=== PATIENT | male | born 1965 | race Caucasian/White ===

== ENCOUNTER 2019-04-15 20:48 | Emergency (ER) | payer OTHER ==
[~2019-04-15] VITALS: Ht 167.6 cm; Wt 77.1 kg
--- NOTE | 2019-04-15 21:05 | NUR ---
DR. BEAUCHAMP AT BEDSIDE FOR MSE.
[2019-04-15] MEDS ORDERED: CLONIDINE HCL 0.1 MG TABLET PO ONE (21:15)
[2019-04-15] MEDS ORDERED: CLONIDINE HCL 0.1 MG TABLET ONE (21:17)
[2019-04-15 21:22] LABS: *BLOOD, URINE NEGATIVE (NEGATIVE); *CLARITY,URINE CLEAR (CLEAR); *COLOR,URINE YELLOW (YELLOW); *KETONES,URINE NEGATIVE (NEGATIVE); *UROBILINOGEN,URINE 0.2 E.U./dl (NORMAL); LEUKOCYTE ESTERASE ,URINE NEGATIVE (NEGATIVE); NITRITE, URINE NEGATIVE (NEGATIVE); PH,URINE 5.5 (5.0-8.0); UGLUCOSE NEGATIVE (NEGATIVE)
[2019-04-15 21:28] LABS: *BILIRUBIN,URIN 1+ (NEGATIVE)
--- NOTE | 2019-04-15 21:47 | NUR ---
Patient discharged to home in stable conditon. Written and verbal after care instructions given. Patient verbalizes understanding of instructions. PATIENT LEFT WITH STABLE GAIT.
[2019-04-15 21:56] VITALS: BP 153/88
== END 2019-04-15 21:47 | disposition home or self-care (01) ==
LOC: ER 20:48
DX: I10 Essential (primary) hypertension (principal); F17.290 Nicotine dependence, other tobacco product, uncomplicated; Z71.6 Tobacco abuse counseling
CPT/HCPCS: 93005; A4663

== ENCOUNTER 2019-04-28 21:39 | Emergency (ER) | payer OTHER ==
[~2019-04-28] VITALS: Ht 167.6 cm; Wt 79.4 kg
--- NOTE | 2019-04-28 21:54 | NUR ---
MD AT BEDSIDE FOR HX AND PHYSICAL C/O POSSIBLE FUNGAL INFECTION OF TOE, R FOOT X2YRS DENIES RECENT TRAUMA NOR SURGERY TO THE SITE PT NAD, ABLE TO SPEAK CLEAR AND COMPLETE SENTENCES DENIES SI/HI CONCERNS AT THIS TIME PT IS HOMELESS SIGNED WAIVER FORM SIDERAILSX2 UP BED AT LOWEST POSITION MONITORED ACCORDINGLY
[2019-04-28] MEDS ORDERED: IBUPROFEN 600 MG TABLET ONE (22:12)
[2019-04-28] MEDS ORDERED: IBUPROFEN 600 MG TABLET PO ONE (22:15)
--- NOTE | 2019-04-28 22:23 | NUR ---
Patient discharged to home in stable conditon. Written and verbal after care instructions given. Patient verbalizes understanding of instructions. AMBULATORY W/ STABLE GAIT ALL BELONGINGS W/ PT HOMELESS WAIVER FORM SIGNED
[2019-04-28 22:26] VITALS: BP 142/89
== END 2019-04-28 22:25 | disposition home or self-care (01) ==
LOC: ER 21:39
DX: B35.1 Tinea unguium (principal); I10 Essential (primary) hypertension; F17.200 Nicotine dependence, unspecified, uncomplicated; Z59.0 Homelessness
CPT/HCPCS: A4663

== ENCOUNTER 2019-05-18 22:30 | Emergency (ER) | payer OTHER ==
[~2019-05-18] VITALS: Ht 167.6 cm; Wt 78.9 kg
[2019-05-18] MEDS ORDERED: NIFE60TA9 PO (22:39)
[2019-05-18 23:16] LABS: BASOPHILS # (AUTO) 0.1 K/uL (0.0-8.0); BASOPHILS % (AUTO) 1.3 % (0.0-2.0); EOSINOPHILS # (AUTO) 0.3 K/uL (0.0-0.7); EOSINOPHILS % (AUTO) 3.6 % (0.0-7.0); HEMATOCRIT 43.6 % (36.7-47.1); HEMOGLOBIN 14.5 g/dL (12.5-16.3); LYMPHOCYTES # (AUTO) 2.9 K/uL (20.0-40.0); LYMPHOCYTES % (AUTO) 31.7 % (20.5-51.5); MEAN CORPUSCULAR HEMOGLOBIN 30.1 uug (23.8-33.4); MEAN CORPUSCULAR HGB CONC 33 g/dL (32.5-36.3); MEAN CORPUSCULAR VOLUME 90.6 fL (73.0-96.2); MONOCYTES # (AUTO) 1.4 K/uL (2.0-10.0); MONOCYTES % (AUTO) 15.5 % (0.0-11.0); NEUTROPHILS # (AUTO) 4.3 K/uL (1.8-8.9); NEUTROPHILS % (AUTO) 47.9 % (38.5-71.5); PLATELET COUNT (AUTO) 275 K/uL (152-348); RED BLOOD CELL COUNT(AUTO) 4.81 MIL/uL (4.06-5.63); WHITE BLOOD COUNT (AUTO) 9.1 K/uL (3.6-10.2)
[2019-05-18 23:32] LABS: CREATININE 1.1 mg/dL (0.6-1.3); POTASSIUM 3.8 mmol/L (3.5-5.1)
[2019-05-18 23:40] LABS: BILIRUBIN,DIRECT 0.1 mg/dL (0.0-0.2); BILIRUBIN,TOTAL 0.4 mg/dL (0.2-1.0)
[2019-05-18] MEDS ORDERED: IV NORMAL SALINE 250 ML IV ONE (23:55)
[2019-05-18] MEDS ORDERED: IOHEXOL 300MG/ML 100 ML INFUS..BTL ONE (23:55)
[2019-05-18] MEDS ORDERED: SWABABLE VALVE TRANSFER SET EA MC ONE (23:55)
--- NOTE | 2019-05-19 00:05 | NUR ---
PT IS AMBULATORY W/ STABLE GAIT ABLE TO SPEAK CLEAR AND COMPMLETE SENTENCES C/O FACIAL PAIN (POINTING TO L LOWER JAW) X1DAY DENIES TRAUMA, +TEETH EXTRACTION RECENTLY PT DENIES OTHER PPMDHX PT REQUESTING FOR FOOD BLANKET AND ANTIBIOTICS NOT IN APPARENT DISTRESS MD AT BEDSIDE FOR HX AND PHYSICAL
--- NOTE | 2019-05-19 00:23 | NUR ---
BACK FROM CT VIA WHEELCHAIR ACC BY TECH
--- NOTE | 2019-05-19 00:26 | NUR ---
PT ABLE TO AMBULATE ASKING FOR FOOD AND JUICE
[2019-05-19 01:16] LABS: BAND % (MANUAL) 2 % (0-10); EOSINOPHILS % (MANUAL) 5 % (0-8); LYMPHOCYTES % (MANUAL) 31 % (20-40); MONOCYTES % (MANUAL) 14 % (2-10); NEUTROPHILS % (MANUAL) 48 % (42-75)
--- NOTE | 2019-05-19 02:00 | NUR ---
DC IV SALINE LOCK DRESSED
--- NOTE | 2019-05-19 02:01 | NUR ---
Patient discharged to home in stable conditon. Written and verbal after care instructions given. Patient verbalizes understanding of instructions. AMBULATORY W/ STABLE GAIT ALL BELONGINGS W/ PT
[2019-05-19 02:39] VITALS: BP 154/80
== END 2019-05-19 02:01 | disposition home or self-care (01) ==
LOC: ER 22:35
DX: K02.9 Dental caries, unspecified (principal); I10 Essential (primary) hypertension; F17.200 Nicotine dependence, unspecified, uncomplicated; Z79.899 Other long term (current) drug therapy
CPT/HCPCS: 36415; 70487; 80048; 80076; 85007; 85025; 99284; Q9967; 70030-TC; A4663; J7050

== ENCOUNTER 2019-06-06 17:57 | Emergency (ER) | payer OTHER ==
[~2019-06-06] VITALS: Ht 167.6 cm; Wt 81.6 kg
[~2019-06-06 17:57] MED LIST: NIFE60TA9 PO
--- NOTE | 2019-06-06 18:45 | NUR ---
MARTIN ACE AT BEDSIDE FOR MSE.
[2019-06-06] MEDS ORDERED: LORAZEPAM 0.5 MG TABLET PO ONE (19:00)
--- NOTE | 2019-06-06 19:00 | NUR ---
SHIFT REPORT GIVEN TO BILLY LUTHER
--- NOTE | 2019-06-06 19:10 | NUR ---
Patient agitated and refused blood work. ERMD made aware
--- NOTE | 2019-06-06 19:12 | NUR ---
Patient refuses care. ERMD at bedside to explain. ERMD requests security on standby. Security notified
--- NOTE | 2019-06-06 19:16 | NUR ---
Security at bedside on standby
--- NOTE | 2019-06-06 19:20 | NUR ---
Patient states he wants to give blood and urine. lab made aware and provided urine cup
--- NOTE | 2019-06-06 19:27 | NUR ---
urine sent to lab
[2019-06-06 19:34] LABS: *BILIRUBIN,URIN NEGATIVE (NEGATIVE); *CLARITY,URINE CLEAR (CLEAR); *COLOR,URINE YELLOW (YELLOW); *KETONES,URINE NEGATIVE (NEGATIVE); *UROBILINOGEN,URINE 0.2 E.U./dl (NORMAL); LEUKOCYTE ESTERASE ,URINE NEGATIVE (NEGATIVE); NITRITE, URINE NEGATIVE (NEGATIVE); PH,URINE 5.5 (5.0-8.0); UGLUCOSE NEGATIVE (NEGATIVE)
[2019-06-06] MEDS ORDERED: LORAZEPAM 1 MG TABLET ONE (19:36)
[2019-06-06 19:41] LABS: *BLOOD, URINE TRACE (NEGATIVE); RBC,URINE 0-3 /HPF (0-3); WBC,URINE 0-3 /HPF (0-3)
[2019-06-06 19:42] LABS: MUCUS,URINE FEW /LPF (0-FEW)
[2019-06-06 19:46] LABS: *AMPHETAMINE, URINE POSITIVE (NEGATIVE); *BARBITURATE, URINE NEGATIVE (NEGATIVE); *CANNABINOID, URINE POSITIVE (NEGATIVE); *COCCAINE, URINE NEGATIVE (NEGATIVE); *OPIATE, URINE NEGATIVE (NEGATIVE); *PHENCYCLIDINE SCREEN,URINE NEGATIVE (NEGATIVE)
[2019-06-06 19:47] LABS: BASOPHILS # (AUTO) 0.1 K/uL (0.0-8.0); EOSINOPHILS # (AUTO) 0.2 K/uL (0.0-0.7); HEMATOCRIT 41.2 % (36.7-47.1); LYMPHOCYTES # (AUTO) 2.6 K/uL (20.0-40.0); LYMPHOCYTES % (AUTO) 29.8 % (20.5-51.5); MEAN CORPUSCULAR HEMOGLOBIN 30.5 uug (23.8-33.4); MEAN CORPUSCULAR HGB CONC 34 g/dL (32.5-36.3); MEAN CORPUSCULAR VOLUME 89.9 fL (73.0-96.2); MONOCYTES # (AUTO) 1.6 K/uL (2.0-10.0); NEUTROPHILS # (AUTO) 4.3 K/uL (1.8-8.9); NEUTROPHILS % (AUTO) 49.2 % (38.5-71.5); PLATELET COUNT (AUTO) 293 K/uL (152-348); RED BLOOD CELL COUNT(AUTO) 4.59 MIL/uL (4.06-5.63); WHITE BLOOD COUNT (AUTO) 8.7 K/uL (3.6-10.2)
[2019-06-06 19:56] LABS: CARBON DIOXIDE 27 mmol/L (21-32); CHLORIDE 103 mmol/L (98-107); CREATININE 1.1 mg/dL (0.6-1.3); GLUCOSE 81 mg/dL (74-106); POTASSIUM 3.7 mmol/L (3.5-5.1); UREA NITROGEN, BLOOD 16 mg/dL (7-18)
[2019-06-06 20:02] LABS: ACETAMINOPHEN < 2.0 ug/mL (10-30); ALANINE AMINOTRANSFERASE 78 U/L (16-63); ALKALINE PHOSPHATASE 116 U/L (50-136); ASPARTATE AMINOTRANSFERASE 94 U/L (15-37); BILIRUBIN,DIRECT 0.2 mg/dL (0.0-0.2); BILIRUBIN,TOTAL 0.8 mg/dL (0.2-1.0); ETHANOL 4 MG/DL (0-0); TOTAL PROTEIN, SERUM 8.1 g/dL (6.4-8.2)
[2019-06-06 20:07] LABS: BAND % (MANUAL) 2 % (0-10); LYMPHOCYTES % (MANUAL) 32 % (20-40); NEUTROPHILS % (MANUAL) 45 % (42-75)
[2019-06-06 20:08] LABS: EOSINOPHILS % (MANUAL) 2 % (0-8); MONOCYTES % (MANUAL) 19 % (2-10)
--- NOTE | 2019-06-06 21:00 | NUR ---
Patient in bed sleeping but easily arousable. Breathing even and unlabored. NAD noted
--- NOTE | 2019-06-06 23:00 | NUR ---
Patient in bed awake and oriented. Provided patient with dinner tray and beverages. patient tolerated well. Breathing even and unlabored. NAD noted.
--- NOTE | 2019-06-06 23:20 | NUR ---
Avery Zamarripa at bedside to evaluate patient
[2019-06-07] MEDS ORDERED: LORAZEPAM 1 MG TABLET ONE (00:42)
[2019-06-07] MEDS ORDERED: LORAZEPAM 0.5 MG TABLET PO ONE (00:45)
--- NOTE | 2019-06-07 01:00 | NUR ---
Called [facility] [phone] to follow up on patient. Spoke with Marleny and stated that they have not received the fax from Avery Zamarripa. same fax number received [phone]. re-faxed result attn to Marleny. Marleny stated will call back once fax is received. Patient made aware. No further concerns at this time
--- NOTE | 2019-06-07 01:06 | NUR ---
Patient awake and ambulated to the restroom. Breathing even and unlabored. NAD noted.
--- NOTE | 2019-06-07 02:53 | NUR ---
spoke with [facility] intake and sent over medical clearance note from Dr. Mota. Staff confirmed receipt. per [facility] staff, will be calling back for room number and report
--- NOTE | 2019-06-07 02:54 | NUR ---
Patient in bed sleeping but easily arousable. Breathing even and unlabored. NAD noted
--- NOTE | 2019-06-07 03:09 | NUR ---
Spoke with Bret from [facility] unit 2 for report. Patient will be under Dr. Justice
--- NOTE | 2019-06-07 03:16 | NUR ---
Spoke with Hossein with call a car transportation. given ETA of [phone] via [employer]. Trip #[id number]. patient made aware. no further concerns at this time
--- NOTE | 2019-06-07 04:47 | NUR ---
Patient picked up by [facility] in stable condition via gurney. all belongings with patient. Patient ambulated with steady gait
== END 2019-06-07 04:47 | disposition short-term general hospital (02) ==
LOC: ER 18:00
DX: F32.9 Major depressive disorder, single episode, unspecified (principal); R45.851 Suicidal ideations; F10.10 Alcohol abuse, uncomplicated; I10 Essential (primary) hypertension; F17.200 Nicotine dependence, unspecified, uncomplicated; Z79.899 Other long term (current) drug therapy; Y90.0 Blood alcohol level of less than 20 mg/100 ml
CPT/HCPCS: 36415; 80048; 80076; 80307; 81000; 81001; 85007; 85025; 93005; 99285; G0480 ×2; G0481; 70030-TC; A4663

== ENCOUNTER 2019-06-16 23:16 | Emergency (ER) | payer OTHER ==
[~2019-06-16] VITALS: Ht 167.6 cm; Wt 81.6 kg
[2019-06-17 00:34] LABS: *BLOOD, URINE NEGATIVE (NEGATIVE); *CLARITY,URINE CLEAR (CLEAR); *COLOR,URINE YELLOW (YELLOW); *KETONES,URINE 3+ (NEGATIVE); LEUKOCYTE ESTERASE ,URINE NEGATIVE (NEGATIVE); NITRITE, URINE NEGATIVE (NEGATIVE); UGLUCOSE NEGATIVE (NEGATIVE)
[2019-06-17 00:40] LABS: BASOPHILS # (AUTO) 0.1 K/uL (0.0-8.0); BASOPHILS % (AUTO) 1.3 % (0.0-2.0); EOSINOPHILS # (AUTO) 0.2 K/uL (0.0-0.7); EOSINOPHILS % (AUTO) 2.6 % (0.0-7.0); HEMATOCRIT 40.7 % (36.7-47.1); HEMOGLOBIN 13.6 g/dL (12.5-16.3); LYMPHOCYTES # (AUTO) 2.7 K/uL (20.0-40.0); LYMPHOCYTES % (AUTO) 32.2 % (20.5-51.5); MEAN CORPUSCULAR HEMOGLOBIN 30.6 uug (23.8-33.4); MEAN CORPUSCULAR HGB CONC 34 g/dL (32.5-36.3); MEAN CORPUSCULAR VOLUME 91.3 fL (73.0-96.2); MONOCYTES # (AUTO) 1.3 K/uL (2.0-10.0); MONOCYTES % (AUTO) 15.9 % (0.0-11.0); PLATELET COUNT (AUTO) 287 K/uL (152-348); RED BLOOD CELL COUNT(AUTO) 4.46 MIL/uL (4.06-5.63); WHITE BLOOD COUNT (AUTO) 8.3 K/uL (3.6-10.2)
[2019-06-17 00:47] LABS: ALANINE AMINOTRANSFERASE 82 U/L (16-63); ALKALINE PHOSPHATASE 121 U/L (50-136); ASPARTATE AMINOTRANSFERASE 69 U/L (15-37); BILIRUBIN,DIRECT 0.3 mg/dL (0.0-0.2); BILIRUBIN,TOTAL 0.9 mg/dL (0.2-1.0); CARBON DIOXIDE 27 mmol/L (21-32); CHLORIDE 102 mmol/L (98-107); CREATININE 1.1 mg/dL (0.6-1.3); GLUCOSE 82 mg/dL (74-106); POTASSIUM 3.7 mmol/L (3.5-5.1); UREA NITROGEN, BLOOD 14 mg/dL (7-18)
[2019-06-17 00:52] LABS: *AMPHETAMINE, URINE POSITIVE (NEGATIVE); *BARBITURATE, URINE NEGATIVE (NEGATIVE); *CANNABINOID, URINE POSITIVE (NEGATIVE); *COCCAINE, URINE NEGATIVE (NEGATIVE); *OPIATE, URINE NEGATIVE (NEGATIVE); *PHENCYCLIDINE SCREEN,URINE POSITIVE (NEGATIVE)
[2019-06-17 00:56] LABS: ACETAMINOPHEN < 2.0 ug/mL (10-30)
[2019-06-17 01:04] LABS: ETHANOL < 3 MG/DL (0-0)
[2019-06-17 01:07] LABS: *BILIRUBIN,URIN 1+ (NEGATIVE)
[2019-06-17 01:30] LABS: BACTERIA,URINE NONE SEEN /HPF (NONE SEEN); RBC,URINE 0-3 /HPF (0-3); SQUAMOUS EPITHELIAL CELL,UR FEW /HPF (NONE SEEN)
[2019-06-17 01:31] LABS: MUCUS,URINE MANY /LPF (0-FEW)
[2019-06-17 01:37] LABS: EOSINOPHILS % (MANUAL) 4 % (0-8); LYMPHOCYTES % (MANUAL) 22 % (20-40); MONOCYTES % (MANUAL) 19 % (2-10); NEUTROPHILS % (MANUAL) 55 % (42-75)
--- NOTE | 2019-06-17 01:43 | NUR ---
Called Taryn Ravi RN PET for psych eval, left message.
--- NOTE | 2019-06-17 02:09 | NUR ---
Called Taryn Ravi RN PET for psych eval, left a message.
--- NOTE | 2019-06-17 02:31 | NUR ---
Called Taryn Ravi RN PET for pt psych eval, left a message.
--- NOTE | 2019-06-17 03:00 | NUR ---
Patient given written and verbal discharge instructions. Patient verbalizes understanding of instructions. Patient is ambulatory with steady gait. Refuses offer of skilled nursing placement. Patient given list of available shelters in surrounding area. Pt refused to sign homeless waiver and discharge instructions, no acute signs of distress, VSS, escorted out of ER by security.
[2019-06-17 03:03] VITALS: BP 168/99
== END 2019-06-17 03:03 | disposition home or self-care (01) ==
LOC: ER 23:20
DX: R44.0 Auditory hallucinations (principal); M79.10 Myalgia, unspecified site; F19.90 Other psychoactive substance use, unspecified, uncomplicated; I10 Essential (primary) hypertension; F17.210 Nicotine dependence, cigarettes, uncomplicated; Z79.899 Other long term (current) drug therapy
CPT/HCPCS: 36415; 80048; 80076; 80307; 81000; 81001; 84443; 85007; 85025; 87086; 99284; 99406; G0480 ×2; G0481; 70030-TC; A4663

== ENCOUNTER 2019-07-31 21:34 | Emergency (ER) | payer OTHER ==
[~2019-07-31] VITALS: Ht 167.6 cm; Wt 75.3 kg
[2019-07-31] MEDS ORDERED: CEFTRIAXONE 1 G VIAL IM ONE (22:00)
[2019-07-31] MEDS ORDERED: CEFTRIAXONE 1 G VIAL ONE (22:00)
[2019-07-31] MEDS ORDERED: LIDOCAINE HCL 1% 20 ML VIAL ONE (22:00)
--- NOTE | 2019-07-31 22:15 | NUR ---
Patient given written and verbal discharge instructions. Patient verbalizes understanding of instructions. Patient is ambulatory with steady gait. Refuses offer of intermediate placement. Patient given list of available shelters in surrounding area. Patient ambulated out of ER with stable gait.
[2019-07-31 22:17] VITALS: BP 137/82
== END 2019-07-31 22:18 | disposition home or self-care (01) ==
LOC: ER 21:34
DX: L03.114 Cellulitis of left upper limb (principal); F19.10 Other psychoactive substance abuse, uncomplicated; I10 Essential (primary) hypertension; F17.200 Nicotine dependence, unspecified, uncomplicated; Z60.2 Problems related to living alone
CPT/HCPCS: 96372; 99283; J0696; J3490; A4663

== ENCOUNTER 2019-08-12 20:14 | Emergency (ER) | payer SELFPAY ==
--- NOTE | 2019-08-12 20:39 | NUR ---
Patient left without being traiged or seen by ERMD.
== END 2019-08-12 20:40 | disposition left against medical advice (07) ==
LOC: ER 20:14
DX: Z53.21 Procedure and treatment not carried out due to patient leaving prior to being seen by health care provider (principal)

== ENCOUNTER 2019-08-20 16:39 | Emergency (ER) | payer OTHER ==
[~2019-08-20] VITALS: Ht 167.6 cm; Wt 74.4 kg
--- NOTE | 2019-08-20 17:18 | NUR ---
PT CALM AND COOPERATIVE. STATES SI CONCERN WITHOUT PLAN Patient is AOx4, speaking in complete sentences, speech is clear. Patient is able to follow /comprehend directions. Gait is stable. No cardiovascular distress noted. Rate and rhythm are regular. No CP. No respiratory distress noted. Respirations even & unlabored with symmetrical chest rise. No adventitious sounds noted. Chief complaint: REQUESTING PSYCH EVAL Patient denies Fever/Chills. No recent travel. No pertinent medical history/NKDA. - ETOH / -recreational drug use/ +SMOKER MONITORED ACCORDINGLY FREQUENT VISUAL CHECKS DONE PT ROOM PLACED NEAR NURSES' STATION SI PREC APPLIED
[2019-08-20 17:27] LABS: CARBON DIOXIDE 29 mmol/L (21-32); CHLORIDE 102 mmol/L (98-107); CREATININE 1.3 mg/dL (0.6-1.3); GLUCOSE 108 mg/dL (74-106); POTASSIUM 4.3 mmol/L (3.5-5.1); UREA NITROGEN, BLOOD 28 mg/dL (7-18)
[2019-08-20 17:30] LABS: BASOPHILS # (AUTO) 0.1 K/uL (0.0-8.0); BASOPHILS % (AUTO) 0.9 % (0.0-2.0); EOSINOPHILS # (AUTO) 0.3 K/uL (0.0-0.7); EOSINOPHILS % (AUTO) 4.5 % (0.0-7.0); HEMATOCRIT 46.5 % (36.7-47.1); HEMOGLOBIN 15.7 g/dL (12.5-16.3); LYMPHOCYTES # (AUTO) 2.3 K/uL (20.0-40.0); LYMPHOCYTES % (AUTO) 35.4 % (20.5-51.5); MEAN CORPUSCULAR HEMOGLOBIN 31.1 uug (23.8-33.4); MEAN CORPUSCULAR HGB CONC 34 g/dL (32.5-36.3); MEAN CORPUSCULAR VOLUME 92.3 fL (73.0-96.2); MONOCYTES % (AUTO) 15.2 % (0.0-11.0); NEUTROPHILS # (AUTO) 2.8 K/uL (1.8-8.9); PLATELET COUNT (AUTO) 419 K/uL (152-348); RED BLOOD CELL COUNT(AUTO) 5.04 MIL/uL (4.06-5.63); WHITE BLOOD COUNT (AUTO) 6.4 K/uL (3.6-10.2)
[2019-08-20 17:32] LABS: ALANINE AMINOTRANSFERASE 56 U/L (16-63); ALKALINE PHOSPHATASE 140 U/L (50-136); ASPARTATE AMINOTRANSFERASE 30 U/L (15-37); BILIRUBIN,DIRECT 0.1 mg/dL (0.0-0.2); BILIRUBIN,TOTAL 0.2 mg/dL (0.2-1.0); TOTAL PROTEIN, SERUM 8.4 g/dL (6.4-8.2)
[2019-08-20 17:33] LABS: ACETAMINOPHEN < 2.0 ug/mL (10-30)
[2019-08-20 17:34] LABS: ETHANOL < 3 MG/DL (0-0)
[2019-08-20 18:09] LABS: *BILIRUBIN,URIN NEGATIVE (NEGATIVE); *BLOOD, URINE NEGATIVE (NEGATIVE); *CLARITY,URINE CLEAR (CLEAR); *COLOR,URINE YELLOW (YELLOW); *KETONES,URINE NEGATIVE (NEGATIVE); *UROBILINOGEN,URINE 0.2 E.U./dl (NORMAL); LEUKOCYTE ESTERASE ,URINE NEGATIVE (NEGATIVE); NITRITE, URINE NEGATIVE (NEGATIVE); UGLUCOSE NEGATIVE (NEGATIVE)
--- NOTE | 2019-08-20 18:15 | NUR ---
PT IS MEDICALY CLEARED PER CONSULT ON THE PHONE W/ MR MAI AVERY(CRISIS MASTER OCEAN YACHT): FOR VOLUNTARY ADMISSIONS, CALL TAJ MCHUGH DX: SI WITHOUT PLAN, FOR PSYCHE EVALUATION
--- NOTE | 2019-08-20 18:18 | NUR ---
INTAKE: JOSE STATES THERE IS AVAILABLILITY AT [facility] FAX: [phone] PHONE: [phone]
[2019-08-20 18:19] LABS: BAND % (MANUAL) 8 % (0-10); EOSINOPHILS % (MANUAL) 4 % (0-8); LYMPHOCYTES % (MANUAL) 25 % (20-40); MONOCYTES % (MANUAL) 20 % (2-10); NEUTROPHILS % (MANUAL) 43 % (42-75)
[2019-08-20 18:22] LABS: *AMPHETAMINE, URINE POSITIVE (NEGATIVE); *BARBITURATE, URINE NEGATIVE (NEGATIVE); *CANNABINOID, URINE NEGATIVE (NEGATIVE); *COCCAINE, URINE NEGATIVE (NEGATIVE); *OPIATE, URINE NEGATIVE (NEGATIVE); *PHENCYCLIDINE SCREEN,URINE NEGATIVE (NEGATIVE)
--- NOTE | 2019-08-20 20:12 | NUR ---
[facility] No updates at this time, will be called back for updates
--- NOTE | 2019-08-20 20:43 | NUR ---
Spoke with Chayo from [facility] and stated that more clinicals are needed. Re-faxed clinicals over to [phone]
--- NOTE | 2019-08-20 21:42 | NUR ---
Spoke with Abdi from [facility] and confirmed receipt of clinicals
--- NOTE | 2019-08-21 01:31 | NUR ---
Spoke with Abdi from [facility] and confirmed receipt of all clinicals. Patient in bed sleeping but easily arousable. Breathing even and unlabored. No SOB noted. NAD noted. frequent visual checks done. bed low. s/r up x2
--- NOTE | 2019-08-21 02:49 | NUR ---
Yoselyn from [facility] intake called to give transfer info. Patient is being accepted at [facility] unit #2 call for report is . Accepting MD is DR Justice.
--- NOTE | 2019-08-21 04:59 | NUR ---
Spoke with Bret from [facility] and get report
--- NOTE | 2019-08-21 05:57 | NUR ---
Spoke with Ema from [employer] with update on rock picker time
--- NOTE | 2019-08-21 06:22 | NUR ---
Spoke with Al from [employer] with pick pulling machine tender time of 0900 from [facility] ambulance trip # [id number]
--- NOTE | 2019-08-21 07:00 | NUR ---
received hand off and SBAR fr outgoing RN (Esthela) Pt is waiting product picker of Ambulance Pt is for transport to Rm/Unit [facility] (Yoselyn: short staff, please transfer after 0900) [phone] Dx: Psych Eval Receiving Physician: Dr Justice Pt NAD asleep on supine RA monitored accordingly
--- NOTE | 2019-08-21 08:02 | NUR ---
ambulance arrived pickup driver Addendum: 08/21/19 at 0808 by MARY ANN ambulance call back for pickup
--- NOTE | 2019-08-21 09:03 | NUR ---
AMBULANCE AT BEDSIDE FOR CAREER RESOURCE TECHNICIAN PT NAD RA AMBULATORY W/ STABLE GAIT
== END 2019-08-21 09:07 ==
LOC: ER 16:44
DX: R45.851 Suicidal ideations (principal); L03.113 Cellulitis of right upper limb; F10.10 Alcohol abuse, uncomplicated; F15.10 Other stimulant abuse, uncomplicated; F17.210 Nicotine dependence, cigarettes, uncomplicated; Z79.899 Other long term (current) drug therapy
CPT/HCPCS: 36415; 80048; 80076; 80307; 81001; 85007; 85025; 99285; G0480 ×2; G0481; 70030-TC; A4663

== ENCOUNTER 2019-08-26 22:47 | Emergency (ER) | payer OTHER ==
[~2019-08-26] VITALS: Ht 167.6 cm; Wt 73.0 kg
--- NOTE | 2019-08-26 23:17 | NUR ---
Patient walked into ER for medication refill. Dr. Foy at bedside for MSE.
--- NOTE | 2019-08-26 23:27 | NUR ---
Patient discharged to home in stable conditon. Written and verbal after care instructions given. Patient verbalizes understanding of instructions. Patient left with stable gait.
[2019-08-26 23:28] VITALS: BP 148/62
== END 2019-08-26 23:29 | disposition home or self-care (01) ==
LOC: ER 22:47
DX: Z76.0 Encounter for issue of repeat prescription (principal); F17.210 Nicotine dependence, cigarettes, uncomplicated; F10.10 Alcohol abuse, uncomplicated; Y90.9 Presence of alcohol in blood, level not specified; Z60.2 Problems related to living alone
CPT/HCPCS: A4663

== ENCOUNTER 2019-08-29 23:51 | Emergency (ER) | payer OTHER ==
[~2019-08-29] VITALS: Ht 167.6 cm; Wt 74.8 kg
--- NOTE | 2019-08-29 23:59 | NUR ---
PATIENT WAS TOLD TO STAY IN HIS ROOM STARTED SCREAMING AT STAFF MAKING THREATS. PATIENT WENT BACK TO THE ROOM. WAS STILL SCREAMING AND MAKING THREATS WAS TOLD TO CALM DOWN. REQUEST ASSISTANCE FROM OTHER STAFF TO DE ESCALATE NOTED PATIENT STILL NOT FOLLOWING REQUEST.
--- NOTE | 2019-08-30 00:04 | NUR ---
Patient eloped from facility. ER physician notified.
== END 2019-08-30 00:09 | disposition left against medical advice (07) ==
LOC: ER 23:55
DX: M79.644 Pain in right finger(s) (principal); F17.200 Nicotine dependence, unspecified, uncomplicated; Z60.2 Problems related to living alone
CPT/HCPCS: A4663

== ENCOUNTER 2019-09-20 17:41 | Emergency (ER) | payer OTHER ==
[~2019-09-20] VITALS: Ht 167.6 cm; Wt 77.1 kg
[2019-09-20] MEDS ORDERED: FLUORESCEIN SODIUM 1 MG STRIP ONE (17:53)
--- NOTE | 2019-09-20 18:02 | NUR ---
Patient discharged to home in stable condition. Written and verbal after care instructions given. Patient verbalizes understanding of instructions. Stressed follow up WITH COTTON BROKER or return to ER for worsening s/s.
== END 2019-09-20 18:05 | disposition home or self-care (01) ==
LOC: ER 17:41
DX: H53.8 Other visual disturbances (principal); F17.210 Nicotine dependence, cigarettes, uncomplicated; F15.10 Other stimulant abuse, uncomplicated; F10.20 Alcohol dependence, uncomplicated; Y90.9 Presence of alcohol in blood, level not specified; Z86.19 Personal history of other infectious and parasitic diseases
CPT/HCPCS: A4663

== ENCOUNTER 2019-10-01 16:02 | Emergency (ER) | payer OTHER ==
[~2019-10-01] VITALS: Ht 162.6 cm; Wt 64.0 kg
--- NOTE | 2019-10-01 16:25 | NUR ---
Patient ambulated with stable gait. Speech is clear, speaks in complete sentences. No acute neuro deficits noted. Patient came for thoughts of SI. Patient states that he wants to overdose on 60 units of heroin. Denies any HI, or visual hallucinations but reports hearing voices. Respiratory even and unlabored, no cough no sob. No cardiovascular distress noted, denies any cp, palpiations. Denies n/v/d. Patienet in bed at lowest position, sr upx2, call light within reach. Fall/Safety/Suicide precautions initiated per protocol.
--- NOTE | 2019-10-01 16:40 | NUR ---
Crisis Note Patient is well known to this program writer and is requesting admission to [facility]. He is calm and cooperative and alert and oriented and is appropriate for voluntary admission. This clinician called Sameer, loader operator supervisor at [facility] ([phone]) and he agreed to hold a bed for this patient pending medical clearance. Antonino was advised and is happy with this plan. Curry, patient's RN was also notified of this plan. Labwork and medical clearance need to be faxed to [phone] (fax). ED MD, Dr Hay, also notified of plan and is in agreement with this. Medical clearance pending. Ramón in admitting agreed to fax clinicals once they are ready. No need for further crisis evaluation.
[2019-10-01 16:46] LABS: *BILIRUBIN,URIN 1+ (NEGATIVE); *BLOOD, URINE 3+ (NEGATIVE); *CLARITY,URINE HAZY (CLEAR); *COLOR,URINE DARK YELLOW (YELLOW); *KETONES,URINE NEGATIVE (NEGATIVE); LEUKOCYTE ESTERASE ,URINE NEGATIVE (NEGATIVE); NITRITE, URINE NEGATIVE (NEGATIVE); UGLUCOSE NEGATIVE (NEGATIVE)
[2019-10-01 16:47] LABS: BASOPHILS # (AUTO) 0.1 K/uL (0.0-8.0); EOSINOPHILS # (AUTO) 0.1 K/uL (0.0-0.7); HEMATOCRIT 43.1 % (36.7-47.1); HEMOGLOBIN 14.4 g/dL (12.5-16.3); LYMPHOCYTES % (AUTO) 40.2 % (20.5-51.5); MEAN CORPUSCULAR HEMOGLOBIN 30.5 uug (23.8-33.4); MEAN CORPUSCULAR HGB CONC 33 g/dL (32.5-36.3); MEAN CORPUSCULAR VOLUME 91.3 fL (73.0-96.2); MONOCYTES # (AUTO) 0.8 K/uL (2.0-10.0); MONOCYTES % (AUTO) 15.7 % (0.0-11.0); NEUTROPHILS # (AUTO) 2.1 K/uL (1.8-8.9); NEUTROPHILS % (AUTO) 41.1 % (38.5-71.5); PLATELET COUNT (AUTO) 340 K/uL (152-348); RED BLOOD CELL COUNT(AUTO) 4.72 MIL/uL (4.06-5.63); WHITE BLOOD COUNT (AUTO) 5.1 K/uL (3.6-10.2)
[2019-10-01 16:53] LABS: BACTERIA,URINE FEW /HPF (NONE SEEN); RBC,URINE 20-50 /HPF (0-3); SQUAMOUS EPITHELIAL CELL,UR FEW /HPF (NONE SEEN); WBC,URINE 0-3 /HPF (0-3)
[2019-10-01 16:56] LABS: CARBON DIOXIDE 27 mmol/L (21-32); CHLORIDE 102 mmol/L (98-107); CREATININE 0.9 mg/dL (0.6-1.3); GLUCOSE 85 mg/dL (74-106); POTASSIUM 3.9 mmol/L (3.5-5.1); UREA NITROGEN, BLOOD 14 mg/dL (7-18)
[2019-10-01 16:58] LABS: *AMPHETAMINE, URINE POSITIVE (NEGATIVE); *BARBITURATE, URINE NEGATIVE (NEGATIVE); *CANNABINOID, URINE POSITIVE (NEGATIVE); *COCCAINE, URINE NEGATIVE (NEGATIVE); *OPIATE, URINE NEGATIVE (NEGATIVE); *PHENCYCLIDINE SCREEN,URINE NEGATIVE (NEGATIVE)
[2019-10-01] MEDS ORDERED: CEphaleXIN 500 MG CAPSULE PO ONE (17:00)
[2019-10-01 17:02] LABS: ALANINE AMINOTRANSFERASE 81 U/L (16-63); ALKALINE PHOSPHATASE 129 U/L (50-136); ASPARTATE AMINOTRANSFERASE 50 U/L (15-37); BILIRUBIN,DIRECT 0.2 mg/dL (0.0-0.2); BILIRUBIN,TOTAL 0.5 mg/dL (0.2-1.0); TOTAL PROTEIN, SERUM 7.7 g/dL (6.4-8.2)
[2019-10-01 17:04] LABS: ACETAMINOPHEN < 2.0 ug/mL (10-30)
[2019-10-01 17:10] LABS: THYROID STIMULATING HORMONE 3.292 mIU/mL (0.358-3.740)
[2019-10-01 17:20] LABS: ETHANOL < 3 MG/DL (0-0)
[2019-10-01 17:31] LABS: BAND % (MANUAL) 4 % (0-10); EOSINOPHILS % (MANUAL) 5 % (0-8); LYMPHOCYTES % (MANUAL) 45 % (20-40); MONOCYTES % (MANUAL) 8 % (2-10); NEUTROPHILS % (MANUAL) 35 % (42-75)
--- NOTE | 2019-10-01 17:41 | NUR ---
Provided patient with meal tray.
--- NOTE | 2019-10-01 17:53 | NUR ---
Labs, and progress report faxed to [facility]. Awaiting call back for transfer information.
--- NOTE | 2019-10-01 18:29 | NUR ---
Patient in bed asleep, resting with eyes closed. NAD, VSS
--- NOTE | 2019-10-01 19:17 | NUR ---
Report given to ASHKAN Quiñonez
--- NOTE | 2019-10-01 19:26 | NUR ---
Received report from outgoing RN. Assumed care for patient, received sleeping, with no signs and symptoms of acute medical distress. Will continue to monitor.
--- NOTE | 2019-10-01 20:52 | NUR ---
Pt is awake now. Meal provided to patient for dinner: sandwich, fruit and drink. Patient remains in bed, AO x 4. Able to ambulate to the bathroom. No signs of distress. Still verbalizing suicidal ideation, but does not have an active plan at this time. Calm and cooperative. No episodes of agitation or agression to staff. Does not pose danger to self at this time. Closely monitored by RN.
--- NOTE | 2019-10-02 01:26 | NUR ---
Patient remains sleeping in bed. No signs of acute distress. Refused VS taken at this time. Side rails up x 2. Needs attended. Still waiting for placement.
--- NOTE | 2019-10-02 01:29 | NUR ---
Sukhjinder, [facility] Intake, informed RN that patient has been accepted to [facility] [address] Hernandez. Unit 2 Contact # [phone]. Transportation [employer] contacted. S/W Erica. WILLIAM [phone] pickling tank operator.
--- NOTE | 2019-10-02 02:13 | NUR ---
Report given to [facility] staff Unit 2, and patient BP 163/85 accepted by network control supervisor Mekhi.
--- NOTE | 2019-10-02 02:30 | NUR ---
Patient Tranferred to outside Facility for Psych admission. Accepted to [facility], per Sukhjinder (Ship Boat Or Barge Mate) under Dr. Justice/Dr. Hernandez. Patient picked up by [employer] transportation, gave report to Kee BALDWIN. Pt self-responsible for belongings. Snacks provided to patient including juice and sandwich. Also provided patient with a jacket and scarf as requested, otherwise has complete clothing. All VS within baseline level. Left the building in stable condition, via gurney.
== END 2019-10-02 02:35 ==
LOC: ER 16:05
DX: F32.9 Major depressive disorder, single episode, unspecified (principal); R44.0 Auditory hallucinations; Z59.0 Homelessness; I10 Essential (primary) hypertension; Z86.19 Personal history of other infectious and parasitic diseases; F10.20 Alcohol dependence, uncomplicated; F15.10 Other stimulant abuse, uncomplicated; Y90.0 Blood alcohol level of less than 20 mg/100 ml; R31.9 Hematuria, unspecified; R45.851 Suicidal ideations
CPT/HCPCS: 36415; 80048; 80076; 80307 ×2; 80329; 81001; 84443; 85025; 99285; G0480; 70030-TC; A4663

== ENCOUNTER 2019-12-15 22:11 | Emergency (ER) | payer MEDICAID, OTHER ==
[~2019-12-15] VITALS: Ht 167.6 cm; Wt 77.1 kg
--- NOTE | 2019-12-15 22:40 | NUR ---
Dr. Jacobson at bedside for MSE
[2019-12-15] MEDS ORDERED: HYDROCODONE/APAP 10-325 MG TABLET PO ONE (22:45)
[2019-12-15] MEDS ORDERED: HYDROCODONE/APAP 10-325 MG TABLET ONE (22:51)
--- NOTE | 2019-12-15 23:00 | NUR ---
Patient is cleared for discharge by MD. After care instructions for verbal and written explained. Homeless waiver explained, and explained to him that we can get him a ride to a place where he wants to go. However, patient started verbalizing that he is suicidal, reported to MD.
--- NOTE | 2019-12-15 23:03 | NUR ---
informed nurse supervisor securities vault pt being suicidal. no available sitter at this time security avaible if needed RN will monitor pt at this time fall and safety precautions established
--- NOTE | 2019-12-15 23:10 | NUR ---
Pt refused all diagnostic exams ordered by the doctor. Despite being told that this is mandatory, he started screaming and yelling to all the staff that he wants to refuse everything, and that he "knows his right". Explained to him that unless we do any of this exams, we are unable to place him or keep him for MHU. He keeps asserting that he "knows his rights". MD made aware and had a discussion with patient, wherein the patient is verbally assaulting the MD and saying mean and profanity words. Nursing supervisor carton and can supply was notified of the situation. Security was called, and pending [employer] intervention if he starts being physical. Per MD, in his professional opinion, patient is not suicidal and is just being manipulative. Patient, however stormed out of the ER, when he knew he couldn't get his way. Homeless packet and discharge instructions unable to be handed out to patient. Primary RN co-signed homeless waiver and DC instructions. Ambulated out of ER in steady gait.
== END 2019-12-15 23:10 | disposition left against medical advice (07) ==
LOC: ER 22:11
DX: G89.29 Other chronic pain (principal); M25.531 Pain in right wrist; R45.851 Suicidal ideations; Z59.0 Homelessness; Z53.29 Procedure and treatment not carried out because of patient's decision for other reasons
CPT/HCPCS: A4663